=== PATIENT | female | born 1945 | race Caucasian/White ===

== ENCOUNTER 2022-12-20 18:37 | Emergency (ER) | payer MEDICARE, BC ==
[~2022-12-20] VITALS: Ht 162.6 cm; Wt 83.9 kg
--- NOTE | 2022-12-20 19:01 | NUR ---
BIBRA 89 C/O BACK PAIN S/P MECHANICAL FALL 4 HOURS AGO. DENIES LOC, NO VISIBLE TRAUMA. PT PLACED IN BED AND CONNECTED TO MONITOR. VSS. BREATHING EVEN AND UNLABORED. AWAITING MD ORDERS.
--- NOTE | 2022-12-20 19:04 | NUR ---
DR. SCHNEIDER AT BEDSIDE FOR EVAL
[2022-12-20] MEDS ORDERED: DIAZEPAM 5 MG TABLET ONE (19:45)
[2022-12-20] MEDS ORDERED: KETOROLAC TROMETHAMINE INJ 60 MG/2 ML VIAL IM ONE (19:45)
[2022-12-20] MEDS: KETOROLAC TROMETHAMINE INJ 60 MG/2 ML VIAL IM ONE ×2 (19:54→21:45)
[2022-12-20] MEDS: DIAZEPAM 5 MG TABLET PO ONE (19:55)
--- NOTE | 2022-12-20 21:24 | NUR ---
Patient discharged to home in stable condition. Written and verbal after care instructions given. Patient verbalizes understanding of instruction.
[2022-12-20] MEDS ORDERED: KETOROLAC TROMETHAMINE INJ 30 MG/ML VIAL ONE (21:40)
--- NOTE | 2022-12-20 21:45 | NUR ---
ASSISTED TO WHEELCHAIR. IN THE CAR WAITING
[2022-12-20 21:50] VITALS: BP 187/70
== END 2022-12-20 21:51 | disposition home or self-care (01) ==
LOC: ER 18:40
DX: S20.229A Contusion of unspecified back wall of thorax, initial encounter (principal); M62.830 Muscle spasm of back; Z98.890 Other specified postprocedural states; W01.0XXA Fall on same level from slipping, tripping and stumbling without subsequent striking against object, initial encounter; Y93.89 Activity, other specified; Y92.000 Kitchen of unspecified non-institutional (private) residence as the place of occurrence of the external cause; Y99.8 Other external cause status
CPT/HCPCS: 99285; 72131; 71045; 96372 ×2; 72128; J1885 ×2

== ENCOUNTER 2023-06-29 14:09 | Emergency (ER) | payer MEDICARE, BC ==
[~2023-06-29] VITALS: Ht 162.6 cm; Wt 83.0 kg
[2023-06-29] MEDS ORDERED: ONDANSETRON HCL/PF 4 MG/2 ML VIAL IV ONE (15:30)
[2023-06-29] MEDS ORDERED: FENTANYL PF 100MCG/2ML AMPUL IV ONE ×2 (15:30→18:00)
[2023-06-29] MEDS ORDERED: IV NS 0.9% 1,000 ML IV ONE (15:30)
[2023-06-29] MEDS ORDERED: FENTANYL PF 100MCG/2ML AMPUL ONE ×2 (15:53→17:56)
[2023-06-29] MEDS ORDERED: PROPOFOL 20 ML IV ONE (17:11)
[2023-06-29 18:07] VITALS: TEMP 98.3
[2023-06-29] MEDS ORDERED: PROPOFOL 200 MG/20 ML VIAL IV ONE (20:00)
[2023-06-29 22:04] VITALS: BP 151/88; O2SAT 98
== END 2023-06-29 22:04 | disposition home or self-care (01) ==
LOC: ER 14:28
DX: M24.451 Recurrent dislocation, right hip (principal); Z96.641 Presence of right artificial hip joint; Z60.2 Problems related to living alone
CPT/HCPCS: 99285; 27265; 96374; 96361; 99152; 73502 ×2; J2704; J3010 ×2; J7030; G0500